=== PATIENT | male | born 2000 | race Hispanic/Latino ===

== ENCOUNTER 2018-10-13 14:57 | Emergency (ER) | payer OTHER, SELFPAY ==
--- NOTE | 2018-10-13 15:33 | RAD ---
AP CHEST: History: Chest pain Date: 10-13-18 FINDINGS: There is a right sided clavicular plate and screws in place. The lungs are well aerated. No evidence of active intrathoracic disease seen. No evidence of effusions, pneumonia or pneumothorax seen. IMPRESSION: Unremarkable AP view chest. POS: [facility]
[2018-10-13 16:35] LABS: #Eosinphils 0.2 thou/uL (0.0-0.7); #Lymphocytes 1.6 thou/uL (1.20-3.40); #Monocytes 0.6 thou/uL (0.11-0.59); #Neutrophils 3.3 thou/uL (1.40-6.50); %Basophils 0.8 % (0.0-1.0); %Eosinophils 3.4 % (0.0-10.0); %Lymphocytes 28.6 % (28.0-48.0); %Monocytes 9.8 % (0.0-4.0); %Neutrophils 57.5 % (31.0-61.0); Hemoglobin 14.2 g/dL (14.0-18.0); Mean Corpuscular HGB CONC 34.2 g/dL (32.0-36.0); Mean Corpuscular Hemoglobin 30.5 pg (25.0-35.0); Mean Corpuscular Volume 89.2 fL (78.0-98.0); Mean Platelet Volume 7.9 fL (7.4-10.4); Platelet Count 235 thou/uL (130-400); RBC Distribution Width 11.8 % (11.5-14.5); Red Blood Cell (RBC) Count 4.64 mill/uL (4.00-5.20); White Blood Cell (WBC) Count 5.8 thou/uL (4.8-10.8)
[2018-10-13 16:59] LABS: ALT (SGPT) 28 U/L (8-55); AST (SGOT) 35 U/L (5-34); Albumin 4.3 g/dL (3.5-5.0); Alkaline Phosphatase 83 U/L (Less than 750); Anion Gap 10 mmol/L (10-20); BUN (Urea Nitrogen) 14 mg/dL (8.9-20.6); Bilirubin, Total 0.7 mg/dL (0.2-1.2); Calc. Creatinine Clearance 0 mL/min (70-130); Calcium 9.8 mg/dL (7.8-10.44); Carbon Dioxide 26 mmol/L (22-29); Chloride 108 mmol/L (98-107); Estimated GFR-MDRD 82; Globulin 2.6 g/dL (2.4-3.5); Glucose 90 mg/dL (70-105); Potassium 4.7 mmol/L (3.5-5.1); Protein, Total 6.9 g/dL (6.0-8.3); Sodium 139 mmol/L (136-145)
[2018-10-13] MEDS ORDERED: Ibuprofen 200 MG TAB ONE ×2 (18:36→18:38)
[2018-10-13] MEDS ORDERED: Acetaminophen 500 MG TAB ONE (18:36)
== END 2018-10-13 19:49 | disposition home or self-care (01) ==
LOC: ERS 14:57
DX: R07.89 Other chest pain (principal)
CPT/HCPCS: 36415; 71045; 80053; 84484; 85025; 93005

== ENCOUNTER 2022-03-29 20:59 | Inpatient (IN) | payer OTHER ==
[2022-03-29] MEDS ORDERED: Acetaminophen 325 MG TAB PO PRN ×2 (22:23→22:30)
[2022-03-29] MEDS ORDERED: Promethazine HCl 25 MG/ML VIAL IM PRN (22:23)
[2022-03-29] MEDS ORDERED: traMADol HCl 50 MG TAB PO PRN ×2 (22:23)
[2022-03-29] MEDS ORDERED: hydrALAZINE 20 MG/ML VIAL SLOW IVP PRN (22:23)
[2022-03-29] MEDS ORDERED: Ondansetron PF 4 MG/2 ML Vial IVP PRN ×2 (22:23→22:30)
[2022-03-29] MEDS ORDERED: Ondansetron ODT 4 MG TAB SL PRN (22:30)
[2022-03-29] MEDS ORDERED: Sodium Chloride 0.9% 1,000 ML IV SCH (23:45)
[2022-03-30] MEDS: Acetaminophen 500 MG TAB PO SCH ×3 (00:03→12:21)
[2022-03-30] MEDS: traMADol HCl 50 MG TAB PO SCH ×3 (00:04→12:22)
[2022-03-30] MEDS: traMADol HCl 50 MG TAB PO PRN ×2 (00:05→09:09)
[2022-03-30] MEDS ORDERED: Morphine 2 MG/ML VIAL SLOW IVP PRN (02:55)
[2022-03-30 03:25] VITALS: BMI 35.6
[2022-03-30 05:39] LABS: #Eosinphils 0.1 thou/uL (0.0-0.7); #Lymphocytes 1.9 thou/uL (1.20-3.40); #Monocytes 0.7 thou/uL (0.11-0.59); #Neutrophils 5.8 thou/uL (1.40-6.50); %Basophils 0.2 % (0.0-1.0); %Eosinophils 1.4 % (0.0-10.0); %Lymphocytes 22.2 % (21.0-51.0); %Monocytes 8.3 % (0.0-10.0); %Neutrophils 67.8 % (42.0-75.0); Hemoglobin 14.2 g/dL (14.0-18.0); Mean Corpuscular HGB CONC 34.2 g/dL (32.0-36.0); Mean Corpuscular Hemoglobin 31.5 pg (27.0-31.0); Mean Corpuscular Volume 92.3 fL (78.0-98.0); Platelet Count 208 thou/uL (130-400); RBC Distribution Width 11.9 % (11.5-14.5); White Blood Cell (WBC) Count 8.6 thou/uL (4.8-10.8)
[2022-03-30 05:43] LABS: Anion Gap 12 mmol/L (10-20); BUN (Urea Nitrogen) 11 mg/dL (8.9-20.6); Calc. Creatinine Clearance 193 mL/min (70-130); Calcium 8.8 mg/dL (7.8-10.44); Carbon Dioxide 23 mmol/L (22-29); Chloride 108 mmol/L (98-107); Estimated GFR 105; Glucose 100 mg/dL (70-105); Potassium 4.2 mmol/L (3.5-5.1); Sodium 139 mmol/L (136-145)
[2022-03-30] MEDS: Ibuprofen 200 MG TAB PO SCH ×2 (06:09→14:12)
[2022-03-30] MEDS ORDERED: Famotidine/PF 20 mg/2ml Vial SLOW IVP SCH (09:00)
[2022-03-30 11:41] VITALS: BP 136/87; TEMP 97.5
== END 2022-03-30 15:30 | disposition home or self-care (01) | DRG 914 ==
LOC: SURG A 20:59 → OBSVTOIN 22:23
PROVIDERS: ADMIT Student in an Organized Health Care Education/Training Program; ATTEND Surgery
DX: S97.81XA Crushing injury of right foot, initial encounter (principal); Z20.822 Contact with and (suspected) exposure to COVID-19; S90.811A Abrasion, right foot, initial encounter; V86.59XA Driver of other special all-terrain or other off-road motor vehicle injured in nontraffic accident, initial encounter; Z88.2 Allergy status to sulfonamides
CPT/HCPCS: 36415; 80048; 85025; 97139; J2270; J7050; S0028